=== PATIENT | male | born 1950 | race Caucasian/White ===

== ENCOUNTER 2018-12-26 08:45 | Day surgery (SDC) | payer BC ==
[~2018-12-26] VITALS: Ht 175.3 cm; Wt 117.9 kg
[2018-12-26] MEDS ORDERED: NICARDIPINE 100MCG/ML 10ML VIAL (CATH LAB) IV ONE (11:00)
[2018-12-26] MEDS ORDERED: NITROGLYCERIN 50MCG/ML 10ML VIAL (CATH LAB) IV ONE (11:00)
[2018-12-26] MEDS ORDERED: MIDAZOLAM HCL 2 MG/2 ML VIAL ONE (11:02)
[2018-12-26] MEDS ORDERED: FENTANYL CITRATE/PF 50MCG/ML 2ML VIAL ONE (11:02)
[2018-12-26] MEDS ORDERED: LIDOCAINE HCL 1% 20ML VIAL (Pyxis) INJ ONE (11:03)
[2018-12-26] MEDS ORDERED: IODIXANOL 320MG/ML 100 ML BOTTLE IV ONE (11:03)
[2018-12-26] MEDS ORDERED: PIOG15TA23 PO (11:44)
[2018-12-26] MEDS ORDERED: GABA800T97 PO (11:44)
[2018-12-26] MEDS ORDERED: ASPI-986 PO (11:44)
[2018-12-26] MEDS ORDERED: TAMS-11 PO (11:44)
[2018-12-26] MEDS ORDERED: METF-414 PO (11:44)
[2018-12-26] MEDS ORDERED: MELA1TAB15 PO (11:44)
[2018-12-26] MEDS ORDERED: LIP40 PO (11:44)
== END 2018-12-26 17:10 | disposition home or self-care (01) ==
LOC: CCL 08:45
PROVIDERS: ATTEND Specialist
DX: I25.118 Atherosclerotic heart disease of native coronary artery with other forms of angina pectoris (principal); E11.40 Type 2 diabetes mellitus with diabetic neuropathy, unspecified; E78.5 Hyperlipidemia, unspecified; I10 Essential (primary) hypertension; N40.0 Benign prostatic hyperplasia without lower urinary tract symptoms; Z79.84 Long term (current) use of oral hypoglycemic drugs; Z79.899 Other long term (current) drug therapy; Z82.49 Family history of ischemic heart disease and other diseases of the circulatory system; Z83.3 Family history of diabetes mellitus; Z79.82 Long term (current) use of aspirin
CPT/HCPCS: 82962; 93458; 99152; C1760; C1769; C1887; C1893; J1644; J2250; J3010; J3490; Q9967; G0500